=== PATIENT | female | born 1970 | race Caucasian/White ===

== ENCOUNTER 2017-03-26 07:55 | Emergency (ER) | payer BC ==
[2017-03-26 08:47] LABS: ABSOLUTE EOSINOPHILS # (AUTO) 0.4 10^3/uL (0.0-0.6); ABSOLUTE LYMPHOCYTES (AUTO) 1.3 10^3/uL (0.5-4.7); ABSOLUTE MONOCYTES (AUTO) 0.5 10^3/uL (0.1-1.4); ABSOLUTE NEUT (AUTO) 4.7 10^3/uL (1.7-8.2); BASOPHILS % (AUTO) 0.3 % (0-2); EOSINOPHILS % (AUTO) 5.3 % (0-6); HEMOGLOBIN 15.8 g/dL (12.0-15.5); HGB HCT DIFFERENCE 1.4; LYMPHOCYTES % (AUTO) 19.1 % (13-45); MEAN CORPUSCULAR HEMOGLOBIN 31.9 pg (27.0-33.4); MEAN CORPUSCULAR HGB CONC 34.4 g/dL (32.0-36.0); MEAN CORPUSCULAR VOLUME 93 fl (80-97); MONOCYTES % (AUTO) 7.3 % (3-13); RED BLOOD COUNT 4.96 10^6/uL (3.72-5.28); RED CELL DISTRIBUTION WIDTH 13.8 % (11.5-14.0); WHITE BLOOD COUNT 6.9 10^3/uL (4.0-10.5)
[2017-03-26 08:59] LABS: ALANINE AMINOTRANSFERASE 205 U/L (9-52); ALBUMIN 4.4 g/dL (3.5-5.0); ALKALINE PHOSPHATASE 163 U/L (38-126); ANION GAP 15 (5-19); ASPARTATE AMINO TRANSFERASE 139 U/L (14-36); BILIRUBIN,DIRECT 0.4 mg/dL (0.0-0.4); BILIRUBIN,TOTAL 0.9 mg/dL (0.2-1.3); BLOOD UREA NITROGEN 13 mg/dL (7-20); CALCIUM 9.3 mg/dL (8.4-10.2); CARBON DIOXIDE 23 mmol/L (22-30); CHLORIDE 109 mmol/L (98-107); CREATININE RESULT 0.67 mg/dL (0.52-1.25); GLUCOSE 87 mg/dL (75-110); LIPASE 41.3 U/L (23-300); POTASSIUM 3.5 mmol/L (3.6-5.0); SODIUM 146.5 mmol/L (137-145); TOTAL PROTEIN 6.7 g/dL (6.3-8.2)
[2017-03-26 09:01] LABS: APPEARANCE,URINE CLEAR; BILIRUBIN,URINE NEGATIVE (NEGATIVE); GLUCOSE, URINE NEGATIVE (NEGATIVE); KETONES,URINE NEGATIVE (NEGATIVE); LEUKOCYTE ESTERASE,URINE NEGATIVE (NEGATIVE); NITRITE,URINE NEGATIVE (NEGATIVE); PROTEIN,URINE NEGATIVE (NEGATIVE); URINE SPECIFIC GRAVITY 1.006
[2017-03-26] MEDS ORDERED: MAG HYDROX/AL HYDROX/SIMETH SUSP 30 ML UDCUP PO ONE ×2 (09:02→10:55)
[2017-03-26] MEDS ORDERED: LIDOCAINE 2% VISCOUS SOLN 20 ML UDCUP PO ONE ×2 (09:02→10:55)
--- NOTE | 2017-03-26 09:02 | ER Document Report ---
ED General - General Mode of Arrival: Ambulatory Information source: Patient TRAVEL OUTSIDE OF THE [place] IN LAST 30 DAYS: No - HPI Onset: Yesterday <PATRICIA ATKINSON - Last Filed: 03/26/17 09:13> <RON DIALLO - Last Filed: 04/01/17 00:06> - General Chief Complaint: Epigastric Pain Stated Complaint: UPPER ABDOMINAL PAIN Time Seen by Provider: 03/26/17 08:54 Notes: Patient is a 46 year old female presenting to the emergency department complaining of upper abdominal pain onset yesterday morning. Patient describes the pain as sharp and constant. Patient states her last meal was yesterday afternoon. Patients associated symptoms include a low grade fever last night and nausea. Patient denies vomiting or diarrhea. (PATRICIA ATKINSON) - Related Data Allergies/Adverse Reactions: cephalexin monohydrate [From Keflex] Allergy (Intermediate, Verified 03/26/17 07 :56) rash vancomycin [Vancomycin] Allergy (Intermediate, Verified 03/26/17 07:56) rash Past Medical History - General Information source: Patient - Social History Smoking Status: Current Every Day Smoker Cigarette use (# per day): Yes - 1/2 a pack a day Frequency of alcohol use: Occasional Drug Abuse: None Family History: Reviewed & Not Pertinent Patient has suicidal ideation: No Patient has homicidal ideation: No Past Surgical History: Reports: Hx Tubal Ligation - Immunizations Hx Diphtheria, Pertussis, Tetanus Vaccination: Yes <PATRICIA ATKINSON - Last Filed: 03/26/17 09:13> Review of Systems - Review of Systems Constitutional: No symptoms reported EENT: No symptoms reported Cardiovascular: No symptoms reported Respiratory: No symptoms reported Gastrointestinal: See HPI, Abdominal pain - upper abdominal Genitourinary: No symptoms reported Female Genitourinary: No symptoms reported Musculoskeletal: No symptoms reported Skin: No symptoms reported Hematologic/Lymphatic: No symptoms reported Neurological/Psychological: No symptoms reported -: Yes All other systems reviewed and negative <PATRICIA ATKINSON - Last Filed: 03/26/17 09:13> Physical Exam - General General appearance: Appears well, Alert In distress: None - HEENT Head: Normocephalic, Atraumatic Eyes: Normal Conjunctiva: Normal Pupils: PERRL - Respiratory Respiratory status: No respiratory distress Breath sounds: Normal - Cardiovascular Rhythm: Regular Heart sounds: Normal auscultation - Abdominal Inspection: Normal Distension: No distension Bowel sounds: Normal Tenderness: Tender - Epigastrium and RUQ tender to palpation Organomegaly: No organomegaly - Back Back: Normal - Extremities General upper extremity: Normal inspection, Normal ROM General lower extremity: Normal inspection, Normal ROM - Neurological Neuro grossly intact: Yes Cognition: Normal Orientation: AAOx4 Chanda Coma Scale Eye Opening: Spontaneous [place] Coma Scale Verbal: Oriented [place] Coma Scale Motor: Obeys Commands Chanda Coma Scale Total: 15 Speech: Normal - Psychological Associated symptoms: Normal affect, Normal mood - Skin Skin Temperature: Warm Skin Moisture: Dry Skin Color: Normal <PATRICIA ATKINSON - Last Filed: 03/26/17 09:13> - Vital signs Vitals: Temp Pulse Resp BP Pulse Ox 98.2 F 77 16 136/74 H 99 03/26/17 07:57 03/26/17 07:57 03/26/17 07:57 03/26/17 07:57 03/26/17 07:57 Course - Laboratory Result Diagrams: 03/26/17 08:35 03/26/17 08:35 <PATRICIA ATKINSON - Last Filed: 03/26/17 09:13> - Laboratory Result Diagrams: 03/26/17 08:35 03/26/17 08:35 - Diagnostic Test Radiology reviewed: Reports reviewed - Gallbladder ultrasound read as possible sludge versus polyp. Pericholecystic fluid, no gallbladder wall thickening. - Consults Dr. Rosales Consulted provider: will come to ER <RON DIALLO - Last Filed: 04/01/17 00:06> - Vital Signs Vital signs: Temp Pulse Resp BP Pulse Ox 98.2 F 68 14 121/74 97 03/26/17 07:57 03/26/17 12:08 03/26/17 12:08 03/26/17 12:08 03/26/17 12:08 - Laboratory Laboratory results interpreted by me: 03/26/17 03/26/17 03/26/17 08:35 08:35 08:45 Hgb 15.8 H Plt Count 148 L Sodium 146.5 H Potassium 3.5 L Chloride 109 H AST 139 H ALT 205 H Alkaline Phosphatase 163 H Urine Urobilinogen 2.0 H Urine Ascorbic Acid 40 H Discharge <PATRICIA ATKINSON - Last Filed: 03/26/17 09:13> <RON DIALLO - Last Filed: 04/01/17 00:06> - Discharge Clinical Impression: Right upper quadrant abdominal pain, Epigastric abdominal pain, Elevated liver enzymes Gastroesophageal reflux disease Qualifiers: Esophagitis presence: esophagitis presence not specified Qualified Code(s): K21.9 - Gastro-esophageal reflux disease without esophagitis Condition: Stable Disposition: HOME, SELF-CARE Additional Instructions: Take the pain medications as prescribed if needed. Take antacids between meals and at bedtime. Continue taking your Nexium. Eat a bland diet. Call [facility] to schedule appointment with Dr. Rosales in the next 1-2 weeks. RETURN TO THE EMERGENCY ROOM IF ANY NEW OR WORSENING SYMPTOMS. Prescriptions: Hydrocodone/Acetaminophen [Hydrocodon-Acetaminophen 5-325] 1 each PO ASDIR PRN # 15 tablet PRN Reason: For Pain Forms: Return to Work Referrals: [facility] [Provider Group] - Follow up in 1 week Scribe Attestation: 03/26/17 09:19 I personally performed the services described in the documentation, reviewed and edited the documentation which was dictated to the scribe in my presence, and it accurately records my words and actions. (RON DIALLO) Scribe Documentation - Scribe Written by Kizzy:: Kizzy Carroll, 03/26/2017 09:15 acting as scribe for :: Rafy <PATRICIA ATKINSON - Last Filed: 03/26/17 09:13>
[2017-03-26 09:10] LABS: BACTERIA,URINE 1+ /HPF
--- NOTE | 2017-03-26 10:16 | RADIOLOGY REPORT (SQ) ---
EXAM DESCRIPTION: U/S ABDOMEN LIMITED W/O DOP COMPLETED DATE/TIME: 03/26/2017 9:59 am REASON FOR STUDY: RUQ pain w/ elevated LFT's COMPARISON: None. TECHNIQUE: Dynamic and static grayscale images acquired of the abdomen and recorded on PACS. Tovao paul selected color Doppler and spectral images recorded. LIMITATIONS: None. FINDINGS: PANCREAS: No masses. Visualized pancreatic duct normal caliber. LIVER: No masses. Echotexture normal. LIVER VASCULATURE: Normal directional flow of the main portal vein and hepatic veins. GALLBLADDER: 8 mm by 2 mm echogenic lesion posterior wall of the gallbladder. No posterior shadowing . Normal wall thickness. No pericholecystic fluid. ULTRASOUND-DETECTED JON'S SIGN: Negative. INTRAHEPATIC DUCTS AND COMMON DUCT: CBD and intrahepatic ducts normal caliber. No filling defects. INFERIOR VENA CAVA: Normal flow. AORTA: No aneurysm. RIGHT KIDNEY: Normal size. Normal echogenicity. No solid or suspicious masses. No hydronephrosis. No calcifications. PERITONEAL AND RIGHT PLEURAL SPACE: No ascites or effusions. OTHER: No other significant findings. IMPRESSION: Gallbladder polyp or adherent sludge. No evidence of acute cholecystitis. TECHNICAL DOCUMENTATION: JOB ID: [id number] [employer]- All Rights Reserved
[2017-03-26] MEDS ORDERED: KETOROLAC TROMETHAMINE INJ/PF 30 MG/1 ML SDV IV ONE (10:55)
[2017-03-26 12:10] VITALS: BP 121/74
--- NOTE | 2017-03-26 13:13 | PDOC CONSULTATION ---
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 Pain was primarily epigastric. Took Mylanta and other [id number] agents with some clinical improvement. She also had low- grade fever. Denies he gets episodes. 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 Timbo Carranza, [facility]. Seen in the emergency department today where she was found to have a gallbladder polyp on ultrasonography, slightly elevated liver function studies. Symptoms improved with a GI cocktail. Surgery was consulted. Past Medical History Cardiac Medical History: Denies: Coronary Artery Disease, Myocardial Infarction, Hypertension Pulmonary Medical History: Denies: Asthma, Bronchitis, Chronic Obstructive Pulmonary Disease (COPD), Pneumonia Neurological Medical History: Denies: Seizures Musculoskeltal Medical History: Denies: Arthritis Hematology: Reports: Anemia - pernicious Past Surgical History Past Surgical History: Reports: Tubal Ligation, Other - Reinier-en-Y gastric bypass procedure, 2007, Dr. Timbo Carranza Social History Smoking Status: Current Every Day Smoker Cigarettes Packs Per Day: 0.5 Hx Recreational Drug Use: No Family History Family History: Reviewed & Not Pertinent Parental Family History Reviewed: Yes Children Family History Reviewed: Yes Sibling(s) Family History Reviewed.: Yes Medication/Allergy Home Medications: Venlafaxine HCl [Effexor 75 Mg Tablet] 150 mg PO DAILY 03/19/11 Multivitamin [Daily Vitamin] 1 each PO DAILY 07/20/14 Zolpidem Tartrate [Ambien 5 mg Tablet] 5 mg PO HSP 07/20/14 Ciprofloxacin HCl [Cipro 500 mg Tablet] 1 tab PO Q8 07/23/14 Ibuprofen [Motrin 600 mg Tablet] 1 tab PO Q6 07/23/14 Oxycodone HCl/Acetaminophen [Percocet 5-325 mg Tablet] 1 tab PO Q4 PRN 07/23/14 Hydrocodone/Acetaminophen [Hydrocodon-Acetaminophen 5-325] 1 each PO ASDIR PRN # 15 tablet 03/26/17 Allergies/Adverse Reactions: cephalexin monohydrate [From Keflex] Allergy (Intermediate, Verified 03/26/17 07 :56) rash vancomycin [Vancomycin] Allergy (Intermediate, Verified 03/26/17 07:56) rash Review of Systems Constitutional: ABSENT: chills, fever(s), headache(s), weight gain, weight loss Eyes: ABSENT: visual disturbances Ears: ABSENT: hearing changes Gastrointestinal: PRESENT: other - HPI Genitourinary: ABSENT: dysuria, hematuria Musculoskeletal: ABSENT: joint swelling Integumentary: ABSENT: rash, wounds Neurological: ABSENT: abnormal gait, abnormal speech, confusion, dizziness, focal weakness, syncope Physical Exam Vital Signs: Temp Pulse Resp BP Pulse Ox 98.2 F 68 14 121/74 97 03/26/17 07:57 03/26/17 12:08 03/26/17 12:08 03/26/17 12:08 03/26/17 12:08 Intake & Output 03/25/17 03/26/17 03/27/17 06:59 06:59 06:59 Weight 81.6 kg General appearance: PRESENT: no acute distress Eye exam: PRESENT: EOMI Ear exam: PRESENT: normal external ear exam Neck exam: PRESENT: full ROM Cardiovascular exam: PRESENT: other - Clear to auscultation bilaterally GI/Abdominal exam: PRESENT: other - Operative scars consistent with previous surgery. There is epigastric tenderness but no peritoneal signs, rigidity organomegaly. Rectal exam: PRESENT: deferred Extremities exam: PRESENT: full ROM Musculoskeletal exam: PRESENT: ambulatory Focused psych exam: PRESENT: other - Appropriate Skin exam: PRESENT: warm - Dense of vitiligo Results Laboratory Results: 03/26/17 08:35 03/26/17 08:35 03/26/17 03/26/17 03/26/17 08:35 08:35 08:45 WBC 6.9 RBC 4.96 Hgb 15.8 H Hct 46.0 MCV 93 MCH 31.9 MCHC 34.4 RDW 13.8 Plt Count 148 L Seg Neutrophils % 68.0 Lymphocytes % 19.1 Monocytes % 7.3 Eosinophils % 5.3 Basophils % 0.3 Absolute Neutrophils 4.7 Absolute Lymphocytes 1.3 Absolute Monocytes 0.5 Absolute Eosinophils 0.4 Absolute Basophils 0.0 Sodium 146.5 H Potassium 3.5 L Chloride 109 H Carbon Dioxide 23 Anion Gap 15 BUN 13 Creatinine 0.67 Est GFR ( Amer) > 60 Est GFR (Non-Af Amer) > 60 Glucose 87 Calcium 9.3 Total Bilirubin 0.9 AST 139 H ALT 205 H Alkaline Phosphatase 163 H Total Protein 6.7 Albumin 4.4 Lipase 41.3 Urine Color YELLOW Urine Appearance CLEAR Urine pH 7.0 Ur Specific [place] 1.006 Urine Protein NEGATIVE Urine Glucose (UA) NEGATIVE Urine Ketones NEGATIVE Urine Blood NEGATIVE Urine Nitrite NEGATIVE Ur Leukocyte Esterase NEGATIVE Ur Squamous Epith Cells RARE Impressions: Abdomen Ultrasound 03/26/17 09:02 IMPRESSION: Gallbladder polyp or adherent sludge. No evidence of acute cholecystitis. Assessment & Plan - Diagnosis (1) Epigastric abdominal pain Is this a current diagnosis for this admission?: Yes Plan: Associated with epigastric tenderness. History of gastric bypass. Possible etiologies include gastroenteritis, ulcer disease, marginal ulcer, GERD. Plan and recommendations: 1. Discussed possible etiologies patient's current symptoms; I doubt the gallbladder polyp is responsible. 2. Suggested she refrain from smoking, excessive caffeine intake. I suggested she continue proton pump inhibitor, and start sucralfate. Further evaluation if symptoms persist include upper endoscopy although this would be limited to her gastrojejunal anastomosis. Her bypassed distal gastric remnant could only be seen by a skilled endoscopist with a pediatric colonoscope. We discussed this. 3. Elevated liver function studies deserves to be repeated in approximately 2 weeks. Multiple etiologies include medication related, possible steatosis, or other cause. Patient has a remote history of pancreatitis. (2) Gall bladder polyp Is this a current diagnosis for this admission?: Yes Plan: Detected on ultrasonography, 8 mm maximum diameter Recommend patient: 1. I reviewed the patient's ultrasound. There is no evidence of pericholecystic fluid, gallbladder wall thickening. 2. Gallbladder polyp falls under the category surveillance; I recommended repeat ultrasound in 6 months to 1 year. Splint this to the patient as well. 3. I gave her a copy of my card, and told her to contact us if she would like to follow-up with Dr. Rosales at [facility]. - Time Time Spent: 30 to 50 Minutes Smoking Cessation Education: 3 to 10 minutes Medications reviewed and adjusted accordingly: Yes Anticipated discharge: Home
== END 2017-03-26 12:45 | disposition home or self-care (01) ==
LOC: ER 07:55
DX: K21.9 Gastro-esophageal reflux disease without esophagitis (principal); R74.8 Abnormal levels of other serum enzymes; R10.13 Epigastric pain; R10.11 Right upper quadrant pain; F17.210 Nicotine dependence, cigarettes, uncomplicated; Z88.1 Allergy status to other antibiotic agents
CPT/HCPCS: 99285; 96374; 36415; 83690; 85025; 80053; 81001; 76705; J3490; J1885

== ENCOUNTER 2020-04-30 11:04 | Emergency (ER) | payer OTHER ==
[2020-04-30 11:20] VITALS: BP 135/95
--- NOTE | 2020-04-30 11:57 | ER Document Report ---
ED Medical Screen (RME) - General Chief Complaint: Chest Pain Stated Complaint: CHEST PAIN Time Seen by Provider: 04/30/20 11:50 Primary Care Provider: YG SMILEY PA-C [Primary Care Provider] - Follow up as needed Mode of Arrival: Ambulatory Information source: Patient Notes: HPI; 49-year-old female presents to the emergency room complaining of intermittent sharp stabbing midsternal chest pain that radiates to her back that started around 830 this morning. Denies any nausea, vomiting, does complain of diaphoresis. Did not take any medications for her symptoms. States she felt like her heart was beating irregularly. No cardiac history. PE: Alert and oriented x3. Lungs: Clear to auscultation without rales, rhonchi, wheezes. Heart: Irregular rate rhythm with PVCs auscultated. No murmurs, no rubs, no gallops. I have greeted and performed a rapid initial assessment of this patient. A comprehensive ED assessment and evaluation of the patient, analysis of test results and completion of the medical decision making process will be conducted by additional ED providers. I have specifically instructed the patient or family members with the patient to immediately return to any nursing staff should anything change in the patient's condition or with their chief complaint. TRAVEL OUTSIDE OF THE [place] IN LAST 30 DAYS: No - Related Data Allergies/Adverse Reactions: cephalexin monohydrate [From Keflex] Allergy (Intermediate, Verified 03/26/17 07:56) rash vancomycin [Vancomycin] Allergy (Intermediate, Verified 03/26/17 07:56) rash Past Medical History - Past Medical History Cardiac Medical History: Denies: Hx Coronary Artery Disease, Hx Heart Attack, Hx Hypertension Pulmonary Medical History: Denies: Hx Asthma, Hx Bronchitis, Hx COPD, Hx Pneumonia Neurological Medical History: Denies: Hx Cerebrovascular Accident, Hx Seizures Renal/ Medical History: Denies: Hx Peritoneal Dialysis Musculoskeltal Medical History: Denies Hx Arthritis Past Surgical History: Reports: Hx Tubal Ligation, Other - Reinier-en-Y gastric bypass procedure, 2007, Dr. Timbo Carranza - Immunizations Hx Diphtheria, Pertussis, Tetanus Vaccination: Yes Physical Exam - Vital signs Vitals: Temp Pulse Resp BP Pulse Ox 98.4 F 96 20 135/95 H 98 04/30/20 11:17 04/30/20 11:17 04/30/20 11:17 04/30/20 11:17 04/30/20 11:17 Course - Vital Signs Vital signs: Temp Pulse Resp BP Pulse Ox 98.4 F 96 20 135/95 H 98 04/30/20 11:17 04/30/20 11:17 04/30/20 11:17 04/30/20 11:17 04/30/20 11:17 Doctor's Discharge - Discharge Referrals: YG SMILEY PA-C [Primary Care Provider] - Follow up as needed
--- NOTE | 2020-04-30 12:14 | RADIOLOGY REPORT (SQ) ---
EXAM DESCRIPTION: CHEST 2 VIEWS IMAGES COMPLETED DATE/TIME: 04/30/2020 12:07 pm REASON FOR STUDY: chest pain COMPARISON: 07/20/2010. EXAM PARAMETERS: NUMBER OF VIEWS: two views TECHNIQUE: Digital Frontal and Lateral radiographic views of the chest acquired. RADIATION DOSE: NA LIMITATIONS: none FINDINGS: LUNGS AND PLEURA: No opacities, masses or pneumothorax. No pleural effusion. MEDIASTINUM AND HILAR STRUCTURES: No masses or contour abnormalities. HEART AND VASCULAR STRUCTURES: Heart normal size. No evidence for failure. BONES: No acute findings. Old right rib fractures. HARDWARE: None in the chest. OTHER: No other significant finding. IMPRESSION: NO ACUTE RADIOGRAPHIC FINDING IN THE CHEST. TECHNICAL DOCUMENTATION: JOB ID: [id number] 2010 [employer]- All Rights Reserved Reading location - IP/workstation name: [email or web address]
[2020-04-30 12:34] LABS: ABSOLUTE EOSINOPHILS # (AUTO) 0.1 10^3/uL (0.0-0.6); ABSOLUTE LYMPHOCYTES (AUTO) 2.1 10^3/uL (0.5-4.7); ABSOLUTE MONOCYTES (AUTO) 0.9 10^3/uL (0.1-1.4); ABSOLUTE NEUT (AUTO) 4.9 10^3/uL (1.7-8.2); BASOPHILS % (AUTO) 0.3 % (0-2); EOSINOPHILS % (AUTO) 1.5 % (0-6); HEMATOCRIT 46.8 % (36.0-47.0); HEMOGLOBIN 15.8 g/dL (12.0-15.5); LYMPHOCYTES % (AUTO) 25.9 % (13-45); MEAN CORPUSCULAR HEMOGLOBIN 31.7 pg (27.0-33.4); MEAN CORPUSCULAR HGB CONC 33.8 g/dL (32.0-36.0); MEAN CORPUSCULAR VOLUME 94 fl (80-97); MONOCYTES % (AUTO) 11.1 % (3-13); PLATELET COUNT 188 10^3/uL (150-450); RED BLOOD COUNT 4.99 10^6/uL (3.72-5.28); RED CELL DISTRIBUTION WIDTH 14.5 % (11.5-14.0); SEGMENTED NEUTROPHILS % (AUTO) 61.2 % (42-78); TOTAL CELLS COUNTED % (AUTO) 100 %
[2020-04-30 12:46] LABS: ALBUMIN 4.3 g/dL (3.5-5.0); ALKALINE PHOSPHATASE 58 U/L (38-126); ANION GAP 7 (5-19); ASPARTATE AMINO TRANSFERASE 22 U/L (14-36); BILIRUBIN,DIRECT 0.2 mg/dL (0.0-0.4); BILIRUBIN,TOTAL 0.3 mg/dL (0.2-1.3); BLOOD UREA NITROGEN 15 mg/dL (7-20); CALCIUM 10.1 mg/dL (8.4-10.2); CARBON DIOXIDE 28 mmol/L (22-30); CHLORIDE 105 mmol/L (98-107); GLUCOSE 99 mg/dL (75-110); POTASSIUM 3.6 mmol/L (3.6-5.0); TOTAL PROTEIN 6.8 g/dL (6.3-8.2)
--- NOTE | 2020-04-30 21:59 | EKG REPORT ---
SEVERITY:- ABNORMAL ECG - SINUS TACHYCARDIA MULTIFORM VENTRICULAR PREMATURE COMPLEXES : Confirmed by: Keila Strange 30-Apr-2020 21:59:30
== END 2020-04-30 14:19 | disposition home or self-care (01) ==
LOC: ER 11:04
DX: R07.9 Chest pain, unspecified (principal); R61 Generalized hyperhidrosis; Z98.84 Bariatric surgery status; Z88.1 Allergy status to other antibiotic agents; Z53.20 Procedure and treatment not carried out because of patient's decision for unspecified reasons
CPT/HCPCS: 36415; 71046; 80053; 84484; 85025; 93005; 93010; 99281; 99285